=== PATIENT | male | born 1990 | race Asian ===

== ENCOUNTER 2019-07-31 22:58 | Emergency (ER) | payer OTHER ==
[~2019-07-31] VITALS: Ht 165.1 cm; Wt 63.5 kg
[2019-07-31 23:05] VITALS: BP 141/98
[2019-07-31] MEDS ORDERED: DIPH25CA58 PO (23:27)
--- NOTE | 2019-07-31 23:28 | PHYS DOC ---
Adult General Chief Complaint Chief Complaint: SKIN PROBLEM HPI HPI Patient is a 29 year old male who presents to the ER for hives better on his arms and stomach the been ongoing since noon. He denies any new laundry detergent, medicines, lotions, foods, or been around anything you in general. Denies any other complaints.[] Review of Systems Review of Systems Constitutional: Denies fever or chills [] Eyes: Denies change in visual acuity, redness, or eye pain [] HENT: Denies nasal congestion or sore throat [] Respiratory: Denies cough or shortness of breath [] Cardiovascular: No additional information not addressed in HPI [] GI: Denies abdominal pain, nausea, vomiting, bloody stools or diarrhea [] : Denies dysuria or hematuria [] Musculoskeletal: Denies back pain or joint pain [] Integument: Reports rash. Neurologic: Denies headache, focal weakness or sensory changes [] Endocrine: Denies polyuria or polydipsia [] Complete systems were reviewed and found to be within normal limits, except as documented in this note. Allergies Allergies Allergies Coded Allergies Type Severity Reaction Last Updated Verified No Known Drug Allergies 07/31/19 No Physical Exam Physical Exam Constitutional: Well developed, well nourished, no acute distress, non-toxic appearance. [] HENT: Normocephalic, atraumatic, bilateral external ears normal, oropharynx moist, no oral exudates, nose normal. [] Eyes: PERRLA, EOMI, conjunctiva normal, no discharge. [] Neck: Normal range of motion, no tenderness, supple, no stridor. [] Cardiovascular:Heart rate regular rhythm, no murmur [] Lungs & Thorax: Bilateral breath sounds clear to auscultation [] Abdomen: Bowel sounds normal, soft, no tenderness, no masses, no pulsatile masses. [] Skin: urticaria on bilateral arms, and stomach. Back: No tenderness, no CVA tenderness. [] Extremities: No tenderness, no cyanosis, no clubbing, ROM intact, no edema. [] Neurologic: Alert and oriented X 3, normal motor function, normal sensory function, no focal deficits noted. [] Psychologic: Affect normal, judgement normal, mood normal. [] EKG EKG [] Radiology/Procedures Radiology/Procedures [] Course & Med Decision Making Course & Med Decision Making Pertinent Labs and Imaging studies reviewed. (See chart for details) Appears to be having hives due to a reaction to unknown substance. Will give Benadryl, Pepcid, and Decadron in ER. Will write prescription for Benadryl. Dragon Disclaimer Dragon Disclaimer This electronic medical record was generated, in whole or in part, using a voice recognition dictation system. Departure Departure Impression: Primary Impression: Allergic reaction Disposition: HOME, SELF-CARE Condition: STABLE Referrals: NO PCP (PCP) Patient Instructions: Hives Additional Instructions: Thank you for visiting [facility]. We appreciate you trusting us with your care. If any additional problems come up don't hesitate to return to visit us. Please follow up with your primary care provider so they can plan additional care if needed and know about the problem that you had. If symptoms worsen come back to the Emergency Department. Any concerning symptoms that start such as chest pain, shortness of air, weakness or numbness on one side of the body, running high fevers or any other concerning symptoms return to the ER. Please fill your medications at any pharmacy and follow the prescription instructions. Scripts Diphenhydramine Hcl (BENADRYL) 25 Mg Capsule 25 MG PO Q6-8HRS PRN for ITCHING, #25 CAP Prov: JO ANN YI APRN 07/31/19 Problem Qualifiers Primary Impression: Allergic reaction Encounter type: initial encounter Qualified Codes: T78.40XA - Allergy, unspecified, initial encounter JO ANN YI APRN Jul 31, 2019 23:27
[2019-07-31] MEDS ORDERED: diphenhydrAMINE HCL 25 MG CAPSULE PO ONE (23:45)
[2019-07-31] MEDS ORDERED: DEXAMETHASONE 4 MG TABLET PO ONE (23:45)
[2019-07-31] MEDS ORDERED: FAMOTIDINE 20 MG TABLET. PO ONE (23:45)
== END 2019-07-31 23:43 | disposition home or self-care (01) ==
LOC: ER 22:58
DX: L50.9 Urticaria, unspecified (principal)
CPT/HCPCS: 99284; J8540; Q0163

== ENCOUNTER 2020-01-08 12:59 | Emergency (ER) | payer OTHER ==
[~2020-01-08] VITALS: Ht 165.1 cm; Wt 78.0 kg
[~2020-01-08 12:59] MED LIST: DIPH25CA58 PO
--- NOTE | 2020-01-08 13:30 | PHYS DOC ---
Past Medical History Past Medical History: No Pertinent History Past Surgical History: No Surgical History Smoking Status: Never Smoker Alcohol Use: None Drug Use: None Adult General Chief Complaint Chief Complaint: CHEST PAIN HPI HPI Patient is a 29 year old male who presents with intermittent cough and sternal throbbing chest pain for last 3 days. He denies fever, travel, been running by else is been sick or with the coronavirus, nausea, vomiting, abdominal pain, dizziness, LOC, shortness of breath, numbness or tingling, focal weakness, headache. He denies taking any medications. He denies ever being immunized. He is Korean-speaking only and lean leader phone was used. Review of Systems Review of Systems Respiratory: cough or denies shortness of breath [] Cardiovascular: Mid sternal chest pain All other systems were reviewed and found to be within normal limits, except as documented in this note. Allergies Allergies Allergies Coded Allergies Type Severity Reaction Last Updated Verified No Known Drug Allergies 07/31/19 No Physical Exam Physical Exam Constitutional: Well developed, well nourished, no acute distress, non-toxic appearance. [] HENT: Normocephalic, atraumatic, bilateral external ears normal, oropharynx moist, no oral exudates, nose normal. [] Eyes: PERRLA, EOMI, conjunctiva normal, no discharge. [] Neck: Normal range of motion, no tenderness, supple, no stridor. [] Cardiovascular:Heart rate regular rhythm, no murmur [] Lungs & Thorax: Bilateral breath sounds clear to auscultation [] Abdomen: Bowel sounds normal, soft, no tenderness, no masses, no pulsatile masses. [] Skin: Warm, dry, no erythema, no rash. [] Back: No tenderness, no CVA tenderness. [] Extremities: No tenderness, no cyanosis, no clubbing, ROM intact, no edema. [] Neurologic: Alert and oriented X 3, normal motor function, normal sensory function, no focal deficits noted. [] Psychologic: Affect normal, judgement normal, mood normal. Normal Physical Exam[] Current Patient Data Vital Signs Vital Signs Date Time Temp Pulse Resp B/P (MAP) Pulse Ox O2 Delivery O2 Flow Rate FiO2 01/08/20 13:10 98.2 75 20 135/68 (90) 100 Room Air 98.2 Lab Values Laboratory Tests Test 01/08/20 13:30 01/08/20 13:50 01/08/20 14:30 White Blood Count 5.9 x10^3/uL (4.0-11.0) Red Blood Count 5.57 x10^6/uL (4.30-5.70) Hemoglobin 15.9 g/dL (13.0-17.5) Hematocrit 47.0 % (39.0-53.0) Mean Corpuscular Volume 84 fL (79-100) Mean Corpuscular Hemoglobin 29 pg (25-35) Mean Corpuscular Hemoglobin Concent 34 g/dL (31-37) Red Cell Distribution Width 13.4 % (11.5-14.5) Platelet Count 170 x10^3/uL (140-400) Neutrophils (%) (Auto) 56 % (31-73) Lymphocytes (%) (Auto) 32 % (24-48) Monocytes (%) (Auto) 7 % (0-9) Eosinophils (%) (Auto) 4 % (0-3) H Basophils (%) (Auto) 1 % (0-3) Neutrophils # (Auto) 3.3 x10^3/uL (1.8-7.7) Lymphocytes # (Auto) 1.9 x10^3/uL (1.0-4.8) Monocytes # (Auto) 0.4 x10^3/uL (0.0-1.1) Eosinophils # (Auto) 0.2 x10^3/uL (0.0-0.7) Basophils # (Auto) 0.0 x10^3/uL (0.0-0.2) Sodium Level 140 mmol/L (136-145) Potassium Level 3.9 mmol/L (3.5-5.1) Chloride Level 101 mmol/L (98-107) Carbon Dioxide Level 26 mmol/L (21-32) Anion Gap 13 (6-14) Blood Urea Nitrogen 10 mg/dL (8-26) Creatinine 0.9 mg/dL (0.7-1.3) Estimated GFR (Cockcroft-Gault) 98.4 BUN/Creatinine Ratio 11 (6-20) Glucose Level 89 mg/dL (70-99) Calcium Level 9.2 mg/dL (8.5-10.1) Total Bilirubin 0.9 mg/dL (0.2-1.0) Aspartate Amino Transferase (AST) 19 U/L (15-37) Alanine Aminotransferase (ALT) 35 U/L (16-63) Alkaline Phosphatase 74 U/L (46-116) Troponin I Quantitative < 0.017 ng/mL (0.000-0.055) Total Protein 8.3 g/dL (6.4-8.2) H Albumin 4.3 g/dL (3.4-5.0) Albumin/Globulin Ratio 1.1 (1.0-1.7) Influenza Type A Antigen Negative (NEGATIVE) Influenza Type B Antigen Negative (NEGATIVE) Urine Collection Type Unknown Urine Color Yellow Urine Clarity Clear Urine pH 6.0 (<5.0-8.0) Urine Specific [place] 1.010 (1.000-1.030) Urine Protein Negative mg/dL (NEG-TRACE) Urine Glucose (UA) Negative mg/dL (NEG) Urine Ketones (Stick) Negative mg/dL (NEG) Urine Blood Negative (NEG) Urine Nitrite Negative (NEG) Urine Bilirubin Negative (NEG) Urine Urobilinogen Dipstick 0.2 mg/dL (0.2 mg/dL) Urine Leukocyte Esterase Negative (NEG) Urine RBC 0 /HPF (0-2) Urine WBC Rare /HPF (0-4) Urine Squamous Epithelial Cells None /LPF Urine Bacteria 0 /HPF (0-FEW) Urine Opiates Screen Neg (NEG) Urine Methadone Screen Neg (NEG) Urine Barbiturates Neg (NEG) Urine Phencyclidine Screen Neg (NEG) Urine Amphetamine/Methamphetamine Neg (NEG) Urine Benzodiazepines Screen Neg (NEG) Urine Cocaine Screen Neg (NEG) Urine Cannabinoids Screen Neg (NEG) Urine Ethyl Alcohol Neg (NEG) Laboratory Tests 01/08/20 13:30 Laboratory Tests 01/08/20 13:30 EKG EKG Sinus Rhythm and no STEMI Interpretation Time: [address] Gray Radiology/Procedures Radiology/Procedures [] Impressions: [facility] [address] [place] [address] IMAGING REPORT Signed PATIENT: EDUARDO HERNANDEZ ACCOUNT: [id number] : 1990 LOCATION: ER AGE: 29 SEX: M EXAM STATUS: PRE ER ORD. PHYSICIAN: ABE DÍAZ APRN REASON: chest pain PROCEDURE: CHEST PA & LATERAL Study: CR CHEST PA LATERAL Indication: Chest pain. Comparison: None. Findings: No pneumothorax, lobar consolidation or pleural effusion. The cardiomediastinal silhouette is within normal limits for size. Symmetric lisa. Grossly intact osseous structures. No free air seen under the diaphragm. Impression: No acute radiographic abnormality of the chest. Electronically signed by: LEFTY CABALLERO MD (01/08/2020 1:30 PM) [facility] [place] DICTATED and SIGNED BY: LEFTY CABALLERO MD DATE: 01/08/20 1330 Course & Med Decision Making Course & Med Decision Making Pertinent Labs and Imaging studies reviewed. (See chart for details) Patient denies any past medical history or taking any medications. EKG shows sinus rhythm and no STEMI. Alert and oriented. Speaks in full clear sentences. Skin pink warm and dry. Ambulatory with a steady gait. Abdomen soft and nontender. Chest pain is not reproduced with palpation. No extremity swelling. Lungs are clear to auscultation all lobes. Afebrile and vital signs within normal limits. Blood work normal, vitals remain normal, chest xray normal. Patient sent home and taught to self isolate and follow up with primary care. [] Dragon Disclaimer Dragon Disclaimer This electronic medical record was generated, in whole or in part, using a voice recognition dictation system. Departure Departure Impression: Primary Impression: Cough Disposition: 01 HOME, SELF-CARE Condition: STABLE Referrals: NO PCP (PCP) Patient Instructions: Cough, Adult Additional Instructions: SELF ISOLATE FOR 14 DAYS. DRINK PLENTY OF FLUIDS. TAKE TYLENOL FOR PAIN. TAKE MEDICATIONS PRESCRIBED. Scripts Benzonatate (TESSALON PERLE) 100 Mg Capsule 1 CAP PO TID, #30 CAP Prov: ABE DÍAZ APRN 01/08/20 ABE DÍAZ APRN Jan 08, 2020 13:30
--- NOTE | 2020-01-08 13:33 | RAD ---
Study: CR CHEST PA LATERAL Indication: Chest pain. Comparison: None. Findings: No pneumothorax, lobar consolidation or pleural effusion. The cardiomediastinal silhouette is within normal limits for size. Symmetric lisa. Grossly intact osseous structures. No free air seen under the diaphragm. Impression: No acute radiographic abnormality of the chest. Electronically signed by: LEFTY CABALLERO MD (01/08/2020 1:30 PM) [facility] [place]
[2020-01-08 13:53] LABS: BASO % 1 % (0-3); EOS # 0.2 x10^3/uL (0.0-0.7); EOS % 4 % (0-3); HEMOGLOBIN 15.9 g/dL (13.0-17.5); LYMPH # 1.9 x10^3/uL (1.0-4.8); LYMPH % 32 % (24-48); MEAN CORPUSCULAR HEMOGLOBIN 29 pg (25-35); MEAN CORPUSCULAR HGB CONC 34 g/dL (31-37); MEAN CORPUSCULAR VOLUME 84 fL (79-100); MONO # 0.4 x10^3/uL (0.0-1.1); MONO % 7 % (0-9); NEUT # 3.3 x10^3/uL (1.8-7.7); NEUT % 56 % (31-73); PLATELET COUNT 170 x10^3/uL (140-400); RED BLOOD COUNT 5.57 x10^6/uL (4.30-5.70); RED CELL DISTRIBUTION WIDTH 13.4 % (11.5-14.5); WHITE BLOOD COUNT 5.9 x10^3/uL (4.0-11.0)
[2020-01-08 14:09] LABS: CALCIUM 9.2 mg/dL (8.5-10.1); CREATININE 0.9 mg/dL (0.7-1.3); GFR 98.4; POTASSIUM 3.9 mmol/L (3.5-5.1)
[2020-01-08 14:15] LABS: ALBUMIN 4.3 g/dL (3.4-5.0); ALBUMIN/GLOBULIN RATIO 1.1 (1.0-1.7); TOTAL BILIRUBIN 0.9 mg/dL (0.2-1.0); TOTAL PROTEIN 8.3 g/dL (6.4-8.2)
[2020-01-08] MEDS ORDERED: BENZ100C PO (14:41)
[2020-01-08 14:54] LABS: BILIRUBIN,URINE NEGATIVE (NEG); CLARITY,URINE CLEAR; COLOR,URINE YELLOW; NITRITE,URINE NEGATIVE (NEG); PROTEIN,URINE NEGATIVE (NEG-TRACE); UROBILINOGEN,URINE 0.2 mg/dL (0.2 mg/dL)
[2020-01-08 14:54] LABS: INFLUENZA A PATIENT NEGATIVE (NEGATIVE); INFLUENZA B PATIENT NEGATIVE (NEGATIVE)
[2020-01-08 14:59] LABS: BARBITURATES NEG (NEG); BENZODIAZEPINES NEG (NEG); CANNABINOIDS NEG (NEG); COCAINE NEG (NEG); METHADONE NEG (NEG); OPIATES NEG (NEG); PHENCYCLIDINE NEG (NEG)
[2020-01-08 15:02] LABS: AMPHETAMINE/METHAMPHETAMINE NEG (NEG)
[2020-01-08 15:10] VITALS: BP 105/66
[2020-01-08 15:15] LABS: BACTERIA,URINE 0 /HPF (0-FEW); RBC,URINE 0 /HPF (0-2); WBC,URINE RARE /HPF (0-4)
--- NOTE | 2020-01-08 15:37 | EKG ---
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
== END 2020-01-08 15:40 | disposition home or self-care (01) ==
LOC: ER 12:59
DX: R05 Cough (principal); R07.2 Precordial pain
CPT/HCPCS: 36415; 71046; 80053; 80307; 81001; 84484; 85025; 87804; 93005; 99285-25

== ENCOUNTER 2020-05-21 17:11 | Emergency (ER) | payer OTHER ==
[~2020-05-21] VITALS: Ht 193 cm; Wt 68.0 kg
[~2020-05-21 17:11] MED LIST changes: +BENZ100C PO
[2020-05-21 17:15] VITALS: BP 122/73
[2020-05-21] MEDS ORDERED: predniSONE 20 MG TABLET PO ONE (17:30)
[2020-05-21] MEDS ORDERED: diphenhydrAMINE HCL 25 MG CAPSULE PO ONE (17:30)
[2020-05-21] MEDS ORDERED: FAMOTIDINE 20 MG TABLET. PO ONE (17:30)
[2020-05-21] MEDS ORDERED: FAMO20TA5 PO (17:44)
[2020-05-21] MEDS ORDERED: PRED50TA PO (17:44)
[2020-05-21] MEDS ORDERED: DIPH25CA58 PO (17:44)
--- NOTE | 2020-05-21 17:44 | PHYS DOC ---
Past Medical History Past Medical History: No Pertinent History Past Surgical History: No Surgical History Smoking Status: Never Smoker Alcohol Use: None Drug Use: None General Adult EDM: Chief Complaint: SKIN RASH/ABSCESS HPI: HPI: Patient is a 30 year old male who presents with a pruritic rash that began t julia. Patient denies any known new contacts that could have caused the rash. Review of Systems: Review of Systems: Constitutional: Denies fever or chills. [] Eyes: Denies change in visual acuity. [] HENT: Denies nasal congestion or sore throat. [] Respiratory: Denies cough or shortness of breath. [] Cardiovascular: Denies chest pain or edema. [] GI: Denies abdominal pain, nausea, vomiting, bloody stools or diarrhea. [] Musculoskeletal: Denies back pain or joint pain. [] Integument: Reports rash. [] Neurologic: Denies headache, focal weakness or sensory changes. [] Psychiatric: Denies depression or anxiety. [] Heart Score: Risk Factors: Risk Factors: DM, Current or recent (<one month) smoker, HTN, HLP, family history of CAD, obesity. Risk Scores: Score 0 - 3: 2.5% MACE over next 6 weeks - Discharge Home Score 4 - 6: 20.3% MACE over next 6 weeks - Admit for Clinical Observation Score 7 - 10: 72.7% MACE over next 6 weeks - Early Invasive Strategies Current Medications: Current Medications Medications (Trade) Dose Ordered Sig/Desmond Start Time Stop Time Status Last Admin Dose Admin Diphenhydramine HCl (Benadryl) 25 mg 1X ONCE 05/21/20 17:30 05/21/20 17:32 DC Famotidine (Pepcid) 20 mg 1X ONCE 05/21/20 17:30 05/21/20 17:32 DC Prednisone (Prednisone) 60 mg 1X ONCE 05/21/20 17:30 05/21/20 17:32 DC Allergies: Allergies: Allergies Coded Allergies Type Severity Reaction Last Updated Verified No Known Drug Allergies 07/31/19 No Physical Exam: PE: Constitutional: Well developed, well nourished, no acute distress, non-toxic appearance. [] HENT: Normocephalic, atraumatic, bilateral external ears normal, oropharynx mo ist, no oral exudates, nose normal. [] Eyes: PERRLA, EOMI, conjunctiva normal, no discharge. [] Neck: Normal range of motion, no tenderness, supple, no stridor. [] Cardiovascular:Heart rate regular rhythm, no murmur [] Lungs & Thorax: Bilateral breath sounds clear to auscultation [] Abdomen: Bowel sounds normal, soft, no tenderness, no masses, no pulsatile masses. [] Skin: Warm, dry, mild amount of erythematous hives noted on patient's abdomen and back Back: No tenderness, no CVA tenderness. [] Extremities: No tenderness, no cyanosis, no clubbing, ROM intact, no edema. [] Neurologic: Alert and oriented X 3, normal motor function, normal sensory function, no focal deficits noted. [] Psychologic: Affect normal, judgement normal, mood normal. [] Current Patient Data: Vital Signs: Vital Signs Date Time Temp Pulse Resp B/P (MAP) Pulse Ox O2 Delivery O2 Flow Rate FiO2 05/21/20 17:15 98.6 67 16 122/73 (89) 98 98.6 EKG: EKG: [] Radiology/Procedures: Radiology/Procedures: [] Course & Med Decision Making: Course & Med Decision Making Pertinent Labs and Imaging studies reviewed. (See chart for details) This is a 30-year-old male patient presenting to the ED today with contact dermatitis, no known cause, discharged on prednisone Benadryl and Pepcid. Return precautions provided. Dragon Disclaimer: Dragon Disclaimer: This electronic medical record was generated, in whole or in part, using a voice recognition dictation system. Departure Departure Impression: Primary Impression: Contact dermatitis Qualified Codes: L25.9 - Unspecified contact dermatitis, unspecified cause Disposition: 01 HOME, SELF-CARE Condition: STABLE Referrals: NO PCP (PCP) ADRIANA CONDON MD follow up in 1-2 weeks Patient Instructions: Contact Dermatitis, [id number] Additional Instructions: You were seen for contact dermatitis rash. Use the prescribed medications as ordered. Follow-up with your own doctor in 1 to 2 weeks as needed. Come back to the ED at any point symptoms worsen. Scripts Famotidine (FAMOTIDINE) 20 Mg Tablet 20 MG PO DAILY, #7 TAB Prov: MUTUNGA,YOKASTA INTERMISSION COORDINATOR 05/21/20 Prednisone (PREDNISONE) 50 Mg Tablet 1 TAB PO DAILY, #5 TAB Prov: MUTUNGA,YOKASTA INTERMISSION COORDINATOR 05/21/20 Diphenhydramine Hcl (BENADRYL) 25 Mg Capsule 1 CAP PO Q6HRS, #30 CAP 0 Refills Prov: YOKASTA ARAIZA APRN 05/21/20 Justicifation of Admission Dx: Justifications for Admission: Justification of Admission Dx: N/A YOKASTA ARAIZA APRN May 21, 2020 17:44
== END 2020-05-21 18:00 | disposition home or self-care (01) ==
LOC: ER 17:11
DX: L25.9 Unspecified contact dermatitis, unspecified cause (principal)
CPT/HCPCS: 99284; J7512; Q0163

== ENCOUNTER 2020-12-11 21:51 | Emergency (ER) | payer OTHER ==
[~2020-12-11] VITALS: Ht 165.1 cm; Wt 75.0 kg
[~2020-12-11 21:51] MED LIST changes: +FAMO20TA5 PO; +PRED50TA PO
[2020-12-11 22:42] VITALS: BP 133/81
[2020-12-11] MEDS ORDERED: predniSONE 20 MG TABLET PO ONE (23:30)
[2020-12-11] MEDS ORDERED: FAMOTIDINE 20 MG TABLET. PO ONE (23:30)
[2020-12-11] MEDS ORDERED: diphenhydrAMINE HCL 25 MG CAPSULE PO ONE (23:30)
[2020-12-12] MEDS ORDERED: FAMO-63 PO (00:25)
[2020-12-12] MEDS ORDERED: DIPH25CA58 PO (00:25)
[2020-12-12] MEDS ORDERED: PRED20TA PO (00:26)
--- NOTE | 2020-12-12 00:27 | PHYS DOC ---
Past Medical History Past Medical History: No Pertinent History Past Surgical History: No Surgical History Smoking Status: Never Smoker Alcohol Use: Occasionally Drug Use: None General Adult EDM: Chief Complaint: ITCHING HPI: HPI: Patient is a 30 year old male who presents to the emergency department complestefania mayes of allergic reaction. Patient states he has hives on his arms and the low back area, patient states he is now broken out 3 times in the past 2 years and hives similar to this. Patient states he has not used any new soaps, cannot pinpoint if it is from foods, or any new contact with animals or other substances. Patient denies shortness of breath, denies scratchy feeling in his throat, denies nasal congestion or chest congestion, denies chest pain or shortness of breath. Patient denies nausea vomiting or diarrhea. Patient denies any neurological changes, states he has not had a flu vaccination nor COVID-19 vaccination this year. She denies any other physical complaints or physical concerns. Review of Systems: Review of Systems: 14 body systems of review of systems have been reviewed. See HPI for pertinent positives and negative responses, otherwise all other systems are negative, nonpertinent or noncontributory. Heart Score: Risk Factors: Risk Factors: DM, Current or recent (<one month) smoker, HTN, HLP, family history of CAD, obesity. Risk Scores: Score 0 - 3: 2.5% MACE over next 6 weeks - Discharge Home Score 4 - 6: 20.3% MACE over next 6 weeks - Admit for Clinical Observation Score 7 - 10: 72.7% MACE over next 6 weeks - Early Invasive Strategies Current Medications: Current Medications Medications (Trade) Dose Ordered Sig/Desmond Start Time Stop Time Status Last Admin Dose Admin Diphenhydramine HCl (Benadryl) 50 mg 1X ONCE 12/11/20 23:30 12/11/20 23:31 DC 12/12/20 00:07 50 MG Famotidine (Pepcid) 20 mg 1X ONCE 12/11/20 23:30 12/11/20 23:31 DC 12/12/20 00:06 20 MG Prednisone (Prednisone) 60 mg 1X ONCE 12/11/20 23:30 21 23:31 DC 12/12/20 00:06 60 MG Allergies: Allergies: Allergies Coded Allergies Type Severity Reaction Last Updated Verified No Known Drug Allergies 07/31/19 No Physical Exam: PE: Constitutional: Well developed, well nourished, no acute distress, non-toxic appearance. HENT: Normocephalic, atraumatic, bilateral external ears normal, oropharynx moist, no oral exudates, nose normal. Eyes: PERRLA, EOMI, conjunctiva normal, no discharge. Neck: Normal range of motion, no tenderness, supple, no stridor. Cardiovascular:Heart rate regular rhythm, no murmur Lungs & Thorax: Bilateral breath sounds clear to auscultation Abdomen: Bowel sounds normal, soft, no tenderness, no masses, no pulsatile masses. Skin: Warm, dry, no erythema, raised rash slightly erythematous to lower back and anterior forearms consistent with hives. Patient complains of pruritus. Back: No tenderness, no CVA tenderness. Extremities: No tenderness, no cyanosis, no clubbing, ROM intact, no edema. Neurologic: Alert and oriented X 3, normal motor function, normal sensory function, no focal deficits noted. Psychologic: Affect normal, judgement normal, mood normal. Current Patient Data: Vital Signs: Vital Signs Date Time Temp Pulse Resp B/P (MAP) Pulse Ox O2 Delivery O2 Flow Rate FiO2 12/11/20 22:42 98.1 81 16 133/81 (98) 97 Room Air 98.1 EKG: EKG: [] Radiology/Procedures: Radiology/Procedures: [] Course & Med Decision Making: Course & Med Decision Making Pertinent Labs and Imaging studies reviewed. (See chart for details) 30-year-old male, vital signs reviewed, presents emergency department with concerns of allergic reaction. Patient has pruritic hives type rash consistent with contact dermatitis. Will treat with p.o. Benadryl, p.o. prednisone, p.o. Pepcid. Will reevaluate in 1 hour. Patient's pruritus and hives type rash have resolved. Discussed with patient concerns for contact dermatitis, patient will be given prescription for Benadryl, Pepcid, prednisone, patient gave verbal understanding of discharge home instructions, prescription medication use, follow-up with primary care for ongoing problems, return to ER precautions and concerns, patient discharged home without incident. Mary Disclaimer: Mary Disclaimer: This electronic medical record was generated, in whole or in part, using a voice recognition dictation system. Departure Departure Impression: Primary Impression: Allergic reaction Qualified Codes: T78.40XA - Allergy, unspecified, initial encounter Disposition: 01 DC HOME SELF CARE/HOMELESS Condition: GOOD Referrals: NO PCP (PCP) Patient Instructions: Tom Additional Instructions: Please take medications as prescribed, follow-up with your primary care for ongoing problems, return to the emergency department for worsening symptoms or other concerns. EMERGENCY DEPARTMENT GENERAL DISCHARGE INSTRUCTIONS Thank you for coming to [facility] Emergency Department (ED) toryanne flores and trusting us with you care. We trust that you had a positive experience in our Emergency Department. If you wish to speak to the department management, you may call the Director at [phone]. YOUR FOLLOW UP INSTRUCTIONS ARE FOLLOWS: 1. Do you have a private Doctor? If you do not have a private doctor, please ask for a resource list of physicians or clinics that may be able to assist you with follow up care. 2. The Emergency Physicain has interpreted your x-rays. The X-Ray specialist will also review them. If there is a change in the findings, you will be notified in 48 hours when at all possible. 3. A lab test or culture has been done, your results will be reviewed and you will be notified if you need a change in treatment. ADDITIONAL INSTRUCTIONS AND INFORMATION: 1. Your care today has been supervised by a physician who is specially trained in emergency care. Many problems require more than one evaluation for a complete diagnosis and treatment. We recommend that you schedule your follow up appointment as recommended to ensure complete treatment of you illness or injury. If you are unable to obtain follow up care and continue to have a problem, or if your condition worsens, we recommend that you return to the ED. 2. We are not able to safely determine your condition over the phone nor are we able to give sound medical advice over the phone. For these safety reasons, if you call for medical advice we will ask you to come to the ED for further evaluation. 3. If you have any questions regarding these discharge instructions please call the ED at [phone]. SAFETY INFORMATION: In the interest of safety, wellness, and injury prevention; we encourage you to wear your sealbelt, if you smoke; quite smoking, and we encourage family to use a protective helmet for bicycling and other sporting events that present an increased risk for head injury. IF YOUR SYMPTOMS WORSEN OR NEW SYMPTOMS DEVELOP, OR YOU HAVE CONCERNS ABOUT YOUR CONDITION; OR IF YOUR CONDITION WORSENS WHILE YOU ARE WAITING FOR YOUR FOLLOW UP APPOINTMENT; EITHER CONTACT YOUR PRIMARY CARE DOCTOR, THE PHYSICIAN WHOSE NAME AND NUMBER YOU WERE GIVEN, OR RETURN TO THE ED IMMEDIATELY. Scripts Prednisone (PREDNISONE) 20 Mg Tablet 1 TAB PO DAILY for HIVES, #5 TAB 0 Refills Prov: JO ANN ESPINO APRN 12/12/20 Famotidine (PEPCID) 20 Mg Tablet 20 MG PO HS for HIVES for 7 Days, #7 TAB 0 Refills Prov: JO ANN ESPINO APRN 12/12/20 Diphenhydramine Hcl (BENADRYL) 25 Mg Capsule 25 MG PO PRN Q6-8HRS PRN for ITCHING, #10 CAP 0 Refills Prov: JO ANN ESPINO APRN 12/12/20 JO ANN ESPINO APRN Dec 12, 2020 00:27
== END 2020-12-12 00:48 | disposition home or self-care (01) ==
LOC: ER 21:51
DX: T78.49XA Other allergy, initial encounter (principal); L50.9 Urticaria, unspecified; Y92.89 Other specified places as the place of occurrence of the external cause
CPT/HCPCS: 99284; J7512; Q0163

== ENCOUNTER 2021-03-19 08:50 | Emergency (ER) | payer OTHER ==
[~2021-03-19] VITALS: Ht 162.6 cm; Wt 68.1 kg
[~2021-03-19 08:50] MED LIST changes: +FAMO-63 PO; +PRED20TA PO
[2021-03-19 09:57] LABS: BILIRUBIN,URINE NEGATIVE (NEG); CLARITY,URINE CLEAR; COLOR,URINE YELLOW; NITRITE,URINE NEGATIVE (NEG); PH,URINE 6.5 (<5.0-8.0); PROTEIN,URINE NEGATIVE (NEG-TRACE); UROBILINOGEN,URINE 0.2 mg/dL (0.2 mg/dL)
[2021-03-19 10:00] LABS: BARBITURATES NEG (NEG); BENZODIAZEPINES NEG (NEG); CANNABINOIDS NEG (NEG); COCAINE NEG (NEG); METHADONE NEG (NEG); OPIATES NEG (NEG); PHENCYCLIDINE NEG (NEG)
[2021-03-19 10:01] LABS: U PREG PATIENT NEGATIVE
[2021-03-19 10:02] LABS: AMPHETAMINE/METHAMPHETAMINE NEG (NEG)
[2021-03-19 10:06] LABS: BACTERIA,URINE 0 /HPF (0-FEW); RBC,URINE 0 /HPF (0-2); WBC,URINE RARE /HPF (0-4)
[2021-03-19 10:21] LABS: BASO # 0.1 x10^3/uL (0.0-0.2); BASO % 1 % (0-3); EOS # 0.2 x10^3/uL (0.0-0.7); EOS % 3 % (0-3); HEMATOCRIT 46.9 % (39.0-53.0); HEMOGLOBIN 15.9 g/dL (13.0-17.5); LYMPH # 1.9 x10^3/uL (1.0-4.8); LYMPH % 26 % (24-48); MEAN CORPUSCULAR HEMOGLOBIN 29 pg (25-35); MEAN CORPUSCULAR HGB CONC 34 g/dL (31-37); MEAN CORPUSCULAR VOLUME 85 fL (79-100); MONO # 0.4 x10^3/uL (0.0-1.1); MONO % 5 % (0-9); NEUT # 4.9 x10^3/uL (1.8-7.7); NEUT % 66 % (31-73); PLATELET COUNT 198 x10^3/uL (140-400); RED CELL DISTRIBUTION WIDTH 14.2 % (11.5-14.5); WHITE BLOOD COUNT 7.5 x10^3/uL (4.0-11.0)
--- NOTE | 2021-03-19 10:26 | RAD ---
2 view abdominal series and PA view chest x-ray Clinical indications: Abdominal pain and diarrhea. FINDINGS: Mild fecal retention is seen. No obstructive bowel pattern is evident. No air-fluid levels are seen. No free intraperitoneal air is seen. Chest x-ray demonstrates no acute lung infiltrate or pleural effusion or pulmonary edema or pneumotho rax. The heart size and pulmonary vasculature and mediastinum and both lisa are unremarkable. IMPRESSION: No acute radiographic abnormality. Electronically signed by: Raul Durand MD (03/19/2021 10:23 AM) [id number]
[2021-03-19 10:34] LABS: CALCIUM 9.4 mg/dL (8.5-10.1); CREATININE 0.9 mg/dL (0.7-1.3); GFR 97.2; POTASSIUM 4.7 mmol/L (3.5-5.1)
[2021-03-19 10:39] LABS: ALBUMIN 4.6 g/dL (3.4-5.0); DIRECT BILIRUBIN 0.1 mg/dL (0.0-0.2); TOTAL BILIRUBIN 0.6 mg/dL (0.2-1.0); TOTAL PROTEIN 8.1 g/dL (6.4-8.2)
[2021-03-19] MEDS ORDERED: FAMO-63 PO (11:07)
--- NOTE | 2021-03-19 11:12 | PHYS DOC ---
Past Medical History Past Medical History: No Pertinent History Past Surgical History: No Surgical History Smoking Status: Never Smoker Alcohol Use: Occasionally Drug Use: None General Adult EDM: Chief Complaint: ABDOMINAL PAIN HPI: HPI: 31-year-old male who denies any significant social history presents the ED with complaints of intermittent episodes pain for the past month stating that time its epigastric in nature, sometimes can be diffuse with associated loose stool. Reports no melena or hematochezia. Does not eat any spicy foods. Foreign travel in 2019 but no recent foreign travel. Cannot recall any diet changes, poorly prepared foods or sick contacts. Has no past surgical history. 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 Has no primary care physician established. No history of Covid. Has been vaccinated against Covid. Currently asymptomatic in the emergency department. Reports occasionally drinks 1 or 2 beers a month but no daily frequent alcohol use, no IV drug use or illicit drug use. Review of Systems: Review of Systems: Constitutional: Denies fever or chills. [] Eyes: Denies change in visual acuity. [] HENT: Denies nasal congestion or sore throat. [] Respiratory: Denies cough or shortness of breath. [] Cardiovascular: Denies chest pain or edema. [] GI: Denies nausea, vomiting, melena hematochezia, hematemesis : Denies dysuria or hematuria Musculoskeletal: Denies back pain or joint pain. [] Integument: Denies rash or diaphoresis Neurologic: Denies headache, focal weakness or sensory changes. [] Endocrine: Denies polyuria or polydipsia. [] Lymphatic: Denies swollen glands. [] Psychiatric: Denies depression or anxiety. [] Heart Score: C/O Chest Pain: No Risk Factors: Risk Factors: DM, Current or recent (<one month) smoker, HTN, HLP, family history of CAD, obesity. Risk Scores: Score 0 - 3: 2.5% MACE over next 6 weeks - Discharge Home Score 4 - 6: 20.3% MACE over next 6 weeks - Admit for Clinical Observation Score 7 - 10: 72.7% MACE over next 6 weeks - Early Invasive Strategies Allergies: Allergies: Allergies Coded Allergies Type Severity Reaction Last Updated Verified No Known Drug Allergies 07/31/19 No Physical Exam: PE: Constitutional: Well developed, well nourished, no acute distress, non-toxic appearance. [] HENT: Normocephalic, atraumatic, bilateral external ears normal, oropharynx moist, no oral exudates, nose normal. [] Eyes: PERRLA, EOMI, conjunctiva normal, no discharge. [] Neck: Normal range of motion, no tenderness, supple, no stridor. [] Cardiovascular:Heart rate regular rhythm, no murmur [] Lungs & Thorax: Bilateral breath sounds clear to auscultation [] Abdomen: Bowel sounds normal, soft, no tenderness, no masses, no pulsatile masses. [] Skin: Warm, dry, no erythema, no rash. [] Back: No tenderness, no CVA tenderness. [] Extremities: No tenderness, no cyanosis, no clubbing, ROM intact, no edema. [] Neurologic: Alert and oriented X 3, normal motor function, normal sensory function, no focal deficits noted. [] Psychologic: Affect normal, judgement normal, mood normal. [] Current Patient Data: Labs: Laboratory Tests Test 03/19/21 09:17 03/19/21 10:10 Urine Collection Type Unknown Urine Color Yellow Urine Clarity Clear Urine pH 6.5 (<5.0-8.0) Urine Specific [place] 1.025 (1.000-1.030) Urine Protein Negative mg/dL (NEG-TRACE) Urine Glucose (UA) Negative mg/dL (NEG) Urine Ketones (Stick) Negative mg/dL (NEG) Urine Blood Negative (NEG) Urine Nitrite Negative (NEG) Urine Bilirubin Negative (NEG) Urine Urobilinogen Dipstick 0.2 mg/dL (0.2 mg/dL) Urine Leukocyte Esterase Negative (NEG) Urine RBC 0 /HPF (0-2) Urine WBC Rare /HPF (0-4) Urine Squamous Epithelial Cells Occ /LPF Urine Bacteria 0 /HPF (0-FEW) Urine Test Negative Urine Opiates Screen Neg (NEG) Urine Methadone Screen Neg (NEG) Urine Barbiturates Neg (NEG) Urine Phencyclidine Screen Neg (NEG) Urine Amphetamine/Methamphetamine Neg (NEG) Urine Benzodiazepines Screen Neg (NEG) Urine Cocaine Screen Neg (NEG) Urine Cannabinoids Screen Neg (NEG) Urine Ethyl Alcohol Neg (NEG) White Blood Count 7.5 x10^3/uL (4.0-11.0) Red Blood Count 5.50 x10^6/uL (4.30-5.70) Hemoglobin 15.9 g/dL (13.0-17.5) Hematocrit 46.9 % (39.0-53.0) Mean Corpuscular Volume 85 fL (79-100) Mean Corpuscular Hemoglobin 29 pg (25-35) Mean Corpuscular Hemoglobin Concent 34 g/dL (31-37) Red Cell Distribution Width 14.2 % (11.5-14.5) Platelet Count 198 x10^3/uL (140-400) Neutrophils (%) (Auto) 66 % (31-73) Lymphocytes (%) (Auto) 26 % (24-48) Monocytes (%) (Auto) 5 % (0-9) Eosinophils (%) (Auto) 3 % (0-3) Basophils (%) (Auto) 1 % (0-3) Neutrophils # (Auto) 4.9 x10^3/uL (1.8-7.7) Lymphocytes # (Auto) 1.9 x10^3/uL (1.0-4.8) Monocytes # (Auto) 0.4 x10^3/uL (0.0-1.1) Eosinophils # (Auto) 0.2 x10^3/uL (0.0-0.7) Basophils # (Auto) 0.1 x10^3/uL (0.0-0.2) Sodium Level 143 mmol/L (136-145) Potassium Level 4.7 mmol/L (3.5-5.1) Chloride Level 105 mmol/L (98-107) Carbon Dioxide Level 29 mmol/L (21-32) Anion Gap 9 (6-14) Blood Urea Nitrogen 11 mg/dL (8-26) Creatinine 0.9 mg/dL (0.7-1.3) Estimated GFR (Cockcroft-Gault) 97.2 Glucose Level 98 mg/dL (70-99) Calcium Level 9.4 mg/dL (8.5-10.1) Total Bilirubin 0.6 mg/dL (0.2-1.0) Direct Bilirubin 0.1 mg/dL (0.0-0.2) Aspartate Amino Transferase (AST) 13 U/L (15-37) L Alanine Aminotransferase (ALT) 28 U/L (16-63) Alkaline Phosphatase 66 U/L (46-116) Creatine Kinase 113 U/L (39-308) Total Protein 8.1 g/dL (6.4-8.2) Albumin 4.6 g/dL (3.4-5.0) Lipase 130 U/L (73-393) Laboratory Tests 03/19/21 10:10 Laboratory Tests 03/19/21 10:10 Vital Signs: Vital Signs Date Time Temp Pulse Resp B/P (MAP) Pulse Ox O2 Delivery O2 Flow Rate FiO2 03/19/21 10:07 77 118/78 (91) 99 Room Air 03/19/21 09:28 97.9 16 97.9 EKG: EKG: [] Radiology/Procedures: Radiology/Procedures: IMAGING REPORT Signed PATIENT: EDUARDO HERNANDEZ ACCOUNT: [id number] : 1990 LOCATION: ER AGE: 31 SEX: M EXAM STATUS: REG ER ORD. PHYSICIAN: HUGH SMITH DO REASON: abd pain and diarrhea PROCEDURE: ACUTE ABDOMEN SERIES 2 view abdominal series and PA view chest x-ray Clinical indications: Abdominal pain and diarrhea. FINDINGS: Mild fecal retention is seen. No obstructive bowel pattern is evident. No air-fluid levels are seen. No free intraperitoneal air is seen. Chest x-ray demonstrates no acute lung infiltrate or pleural effusion or pulmonary edema or pneumothorax. The heart size and pulmonary vasculature and mediastinum and both lisa are unremarkable. IMPRESSION: No acute radiographic abnormality. Electronically signed by: Geovany Durand MD (03/19/2021 10:23 AM) [id number] DICTATED and SIGNED BY: GEOVANY DURAND MD DATE: 03/19/21 [id number] 0 Course & Med Decision Making: Course & Med Decision Making Pertinent Labs and Imaging studies reviewed. (See chart for details) Concern for intermittent episodes of abdominal pain with loose stools, does not describe any GI bleeding symptoms or watery diarrhea. No recent antibiotics or sick contacts. Is asymptomatic in the emergency department. Unclear patient symptoms are related to gastritis vs IBS. Patient does not recall any family history of abdominal pain or GI disorders. Patient is hemodynamically stable with no electrolyte abnormalities. UA and drug screen unremarkable. Will start on trial of Pepcid. Will discharge home with strict ED return precautions were given for abdominal pain, watery diarrhea, bloody diarrhea, fever, intractable nausea or vomiting or syncope. Encouraged urgent outpatient follow-up with PMD and GI for definitive management. Life-threatening processes were considered but are low suspicion at this time, given history, physical exam and ED workup. Pt was educated on all prescription medications and adverse effects. All patient's questions were answered and pt was stable at time of discharge. Life/limb-threatening differential includes but is not limited to, GI bleeding, toxigenic versus infectious diarrhea, shock, mesenteric ischemia, electrolyte abnormality, thyroid storm, toxidrome, antibiotic related, head trauma, syncope, malignancy, inflammatory bowel disease or surgical abdomen (appendicitis or diverticulitis). I spoken with the patient and her caregivers. I explained the patient's condition, diagnoses and treatment plan based on the information available to me at this time. I have answered the patient and her caregiver's questions and addressed any concerns. The patient and her caregivers have a good understanding of patient's diagnosis, condition and treatment plan as can be expected at this point. Vital signs have been stable. Patient's condition is stable and appropriate for discharge from the emergency department. Patient will pursue further outpatient evaluation with primary care physician or other designated or consulting physician as outlined in the discharge instructions. The patient and/or caregivers are agreeable to this plan of care and follow-up instructions have been explained in detail. The patient and/or caregivers have received these instructions in written form and have expressed an understanding of the discharge instructions. The patient and/or caregivers are aware that any significant change of condition or worsening of symptoms should prompt immediate return to this or the closest emergency department or call to 911. Mary Disclaimer: Mary Disclaimer: This electronic medical record was generated, in whole or in part, using a voice recognition dictation system. Departure Departure Impression: Primary Impression: Intermittent abdominal pain Additional Impression: Irregular bowel habits Disposition: HOME / SELF CARE / HOMELESS Condition: STABLE Referrals: NO PCP (PCP) follow up w/pcp for routine care or FOLLOW UP WITH FAMILY MEDICINE: [address], [address] [place] [address] Patient Instructions: Abdominal Migraine, Irritable Bowel Syndrome Additional Instructions: FOLLOW UP WITH GASTROENTEROLOGY: For definitive management of abdominal pain and irregular bowel movements [facility] [address] [place] [address] EMERGENCY DEPARTMENT GENERAL DISCHARGE INSTRUCTIONS Thank you for coming to [facility] Emergency Department (ED) today and trusting us with you care. We trust that you had a positive experience in our Emergency Department. If you wish to speak to the department management, you may call the Director at [phone]. YOUR FOLLOW UP INSTRUCTIONS ARE FOLLOWS: 1. Do you have a private Doctor? If you do not have a private doctor, please ask for a resource list of physicians or clinics that may be able to assist you with follow up care. 2. The Emergency Physicain has interpreted your x-rays. The X-Ray specialist will also review them. If there is a change in the findings, you will be notified in 48 hours when at all possible. 3. A lab test or culture has been done, your results will be reviewed and you will be notified if you need a change in treatment. ADDITIONAL INSTRUCTIONS AND INFORMATION: 1. Your care today has been supervised by a physician who is specially trained in emergency care. Many problems require more than one evaluation for a complete diagnosis and treatment. We recommend that you schedule your follow up appointment as recommended to ensure complete treatment of you illness or injury. If you are unable to obtain follow up care and continue to have a problem, or if your condition worsens, we recommend that you return to the ED. 2. We are not able to safely determine your condition over the phone nor are we able to give sound medical advice over the phone. For these safety reasons, if you call for medical advice we will ask you to come to the ED for further evaluation. 3. If you have any questions regarding these discharge instructions please call the ED at [phone]. SAFETY INFORMATION: In the interest of safety, wellness, and injury prevention; we encourage you to wear your sealbelt, if you smoke; quite smoking, and we encourage family to use a protective helmet for bicycling and other sporting events that present an increased risk for head injury. IF YOUR SYMPTOMS WORSEN OR NEW SYMPTOMS DEVELOP, OR YOU HAVE CONCERNS ABOUT YOUR CONDITION; OR IF YOUR CONDITION WORSENS WHILE YOU ARE WAITING FOR YOUR FOLLOW UP APPOINTMENT; EITHER CONTACT YOUR PRIMARY CARE DOCTOR, THE PHYSICIAN WHOSE NAME AND NUMBER YOU WERE GIVEN, OR RETURN TO THE ED IMMEDIATELY. Scripts Famotidine (PEPCID) 20 Mg Tablet 20 MG PO BID for 14 Days, #28 TAB Prov: HUGH SMITH DO 03/19/21 HUGH SMITH DO March 19, 2021 11:12
[2021-03-19 11:37] VITALS: BP 111/76
== END 2021-03-19 11:51 | disposition home or self-care (01) ==
LOC: ER 08:50
DX: R10.13 Epigastric pain (principal); R19.4 Change in bowel habit; R19.7 Diarrhea, unspecified
CPT/HCPCS: 36415; 74022; 80048; 80076; 80307; 81001; 81025; 82550; 83690; 85025; 99285

== ENCOUNTER 2021-08-15 11:12 | Emergency (ER) | payer OTHER ==
[~2021-08-15] VITALS: Ht 165.1 cm; Wt 68.1 kg
--- NOTE | 2021-08-15 11:56 | PHYS DOC ---
Past Medical History Past Medical History: No Pertinent History Past Surgical History: No Surgical History Smoking Status: Never Smoker Alcohol Use: Occasionally Drug Use: None General Adult EDM: Chief Complaint: OTHER COMPLAINTS HPI: HPI: Patient is a 31 year old male who presents with 3 days of right neck superficial lymph node swelling with slight pain and right lower throat pain. He denies fever, lethargy, nausea, vomiting, abdominal pain, cough, chest pain, shortness of air, numbness or tingling, dental pain, ear pain, nasal congestion, recent viral illness. Denies any past medical history. Rates the pain 4 out of 10. Review of Systems: Review of Systems: Constitutional: Denies fever or chills. [] Eyes: Denies change in visual acuity. [] HENT: Denies nasal congestion or + right sided sore throat. + Right neck lymph node swelling [] Respiratory: Denies cough or shortness of breath. [] Cardiovascular: Denies chest pain or edema. [] GI: Denies abdominal pain, nausea, vomiting, bloody stools or diarrhea. [] : Denies dysuria. [] Musculoskeletal: Denies back pain or joint pain. [] Integument: Denies rash. [] Neurologic: Denies headache, focal weakness or sensory changes. [] Endocrine: Denies polyuria or polydipsia. [] Lymphatic: Denies swollen glands. [] Psychiatric: Denies depression or anxiety. [] Heart Score: C/O Chest Pain: No Current Medications: Current Medications Medications (Trade) Dose Ordered Sig/[facility] Start Time Stop Time Status Last Admin Dose Admin Dexamethasone (Decadron) 10 mg 1X ONCE 08/15/21 12:15 08/15/21 12:16 Allergies: Allergies: Allergies Coded Allergies Type Severity Reaction Last Updated Verified No Known Drug Allergies 07/31/19 No Physical Exam: PE: Constitutional: Well developed, well nourished, no acute distress, non-toxic appearance. [] HENT: Normocephalic, atraumatic, bilateral external ears normal, oropharynx moist, no oral exudates, nose normal. Bilateral tonsillar 1+ swelling. No trismus. The lower mid line. [] Eyes: PERRLA, EOMI, conjunctiva normal, no discharge. [] Neck: Normal range of motion, right neck tenderness from enlarged lymph node, heard pple, no stridor. [] Cardiovascular:Heart rate regular rhythm, no murmur [] Lungs & Thorax: Bilateral breath sounds clear to auscultation [] Abdomen: Bowel sounds normal, soft, no tenderness, no masses, no pulsatile masses. [] Skin: Warm, dry, no erythema, no rash. [] Back: No tenderness, no CVA tenderness. [] Extremities: No tenderness, no cyanosis, no clubbing, ROM intact, no edema. [] Neurologic: Alert and oriented X 3, normal motor function, normal sensory function, no focal deficits noted. [] Psychologic: Affect normal, judgement normal, mood normal. [] EKG: EKG: [] Radiology/Procedures: Radiology/Procedures: [] Course & Med Decision Making: Course & Med Decision Making Pertinent Labs and Imaging studies reviewed. (See chart for details) See HPI. Alert and oriented x4. Ambulatory steady gait. Speaks in full clear sentences. Skin pink warm and dry. Patient has a right neck superficial lymph node that is swollen and slightly tender with palpation. It is mobile. Bilateral tonsils are slightly reddened with 1+ swelling. Abdomen soft and nontender. Afebrile. No trismus. Uvula midline. Swallowing secretions. Patient is given a dose of dexamethasone in the emergency room. Bilateral tympanic's are white but foggy. No sinus tenderness. He denies any nasal congestion. Rapid strep is negative. Mononucleosis lab test is negative. Patient is given dexamethasone in the ED. He is given ibuprofen. Patient follow-up with a primary care provider. [] Mary Disclaimer: Mary Disclaimer: This electronic medical record was generated, in whole or in part, using a voice recognition dictation system. Departure Departure Impression: Primary Impression: Lymph node enlargement Disposition: HOME / SELF CARE / HOMELESS Condition: STABLE Referrals: NO PCP (PCP) Patient Instructions: Medical Screening Exam Additional Instructions: Follow-up with your primary care provider soon as possible. Began running a fever, your throat begins to get sore and you cannot swallow your own saliva, abdominal pain, nausea or vomiting return to the emergency room. Scripts Ibuprofen (IBUPROFEN) 600 Mg Tablet 600 MG PO PRN Q6HRS PRN for INFLAMMATION, #25 TAB Prov: ABE DÍAZ APRN 08/15/21 ABE DÍAZ APRN Aug 15, 2021 11:56
[2021-08-15] MEDS ORDERED: DEXAMETHASONE 4 MG TABLET PO ONE (12:15)
[2021-08-15 12:54] LABS: MONONUCLEOSIS PATIENT NEGATIVE (NEGATIVE)
[2021-08-15] MEDS ORDERED: IBUPROFEN 200 MG TABLET. PO ONE (13:00)
[2021-08-15] MEDS ORDERED: IBUP-1007 PO (13:02)
[2021-08-15 13:15] VITALS: BP 115/77
== END 2021-08-15 13:22 | disposition home or self-care (01) ==
LOC: ER 11:12
DX: R59.9 Enlarged lymph nodes, unspecified (principal)
CPT/HCPCS: 86308; 87070; 87880; 99285